=== PATIENT | male | born 2000 ===

== ENCOUNTER 2023-03-25 12:47 | Emergency (ER) | payer OTHER ==
[~2023-03-25] VITALS: Ht 177.8 cm; Wt 93.0 kg
--- NOTE | 2023-03-25 13:34 | NUR ---
seen and examined by
[2023-03-25] MEDS ORDERED: IBUPROFEN 800 MG TABLET PO ONE (13:45)
--- NOTE | 2023-03-25 14:01 | NUR ---
xray in process
[2023-03-25] MEDS ORDERED: IBUPROFEN 800 MG TABLET ONE (14:29)
[2023-03-25 14:38] VITALS: BP 112/80
--- NOTE | 2023-03-25 14:38 | NUR ---
Patient discharged to home in stable condition. Written and verbal after care instructions given. Patient verbalizes understanding of instructions. Stressed follow up or return to ER for worsening s/s.
[2023-03-25] MEDS ORDERED: IBUP-1957 PO (14:40)
== END 2023-03-25 14:54 | disposition home or self-care (01) ==
LOC: ER 13:10
DX: S06.0X0A Concussion without loss of consciousness, initial encounter (principal); S16.1XXA Strain of muscle, fascia and tendon at neck level, initial encounter; S20.211A Contusion of right front wall of thorax, initial encounter; V49.49XA Driver injured in collision with other motor vehicles in traffic accident, initial encounter; Y93.89 Activity, other specified; Y92.410 Unspecified street and highway as the place of occurrence of the external cause; Y99.8 Other external cause status
CPT/HCPCS: 70450; 71045; 72125; 93005; A4663